=== PATIENT | male | born 1945 | race Caucasian/White ===

== ENCOUNTER 2019-02-07 09:13 | Emergency (ER) | payer OTHER, BC ==
[2019-02-07] MEDS ORDERED: DIPHTH,PERTUSS(ACELL),TET 0.5 ML DISP.SYRIN IM ONE (09:17)
[2019-02-07] MEDS ORDERED: LIDOCAINE HCL 1%, 10 MG/ML (20ML VIAL) ONE (09:28)
[2019-02-07] MEDS ORDERED: LIDOCAINE HCL 1%, 10 MG/ML (50 mL VIAL) SQ ONE (09:28)
[2019-02-07 09:38] VITALS: BP 147/63; PULSE 58; TEMP 97.6; BMI 23.0
--- NOTE | 2019-02-07 09:47 | PDOC ---
History of Present Illness - General Chief Complaint: Laceration Stated Complaint: RIGHT HAND LACERATION Time Seen by Provider: 02/07/19 09:17 - History of Present Illness Initial Comments: 02/07/19 09:48 73 years old with past medical history significant for hypertension presents to the emergency department status post laceration to his right hand in between the webbing of his fourth and fifth digit. Injury occurred while rolling up a hose. Last tetanus within 5 years Complaining of mild pain persistent concent no exacerbating or relieving factors. Past History - Past Medical History Allergies/Adverse Reactions: Allergies Allergy/AdvReac Type Severity Reaction Status Date / Time No Known Allergies Allergy Verified 02/07/19 09:24 Home Medications: Ambulatory Orders Allopurinol [Zyloprim -] 100 mg PO BID 02/07/19 Aspirin Coated [Ecotrin -] 81 mg PO DAILY 02/07/19 Losartan/Hydrochlorothiazide [Hyzaar 50-12.5 Tablet] 1 each PO DAILY 02/07/19 Nebivolol [Bystolic -] 5 mg PO HS 02/07/19 COPD: No HTN: Yes Other medical history: ELEVATED URIC ACID - Immunization History Td Vaccination: Yes TDAP Vaccination: Yes (05/16/2011) Immunization Up to Date: Yes - Suicide/Smoking/Psychosocial Hx Smoking Status: No Smoking History: Former smoker Have you smoked in the past 12 months: No Number of Cigarettes Smoked Daily: 15 If you are a former smoker, when did you quit?: 2014 Information on smoking cessation initiated: No Hx Alcohol Use: Yes Drug/Substance Use Hx: No Review of Systems - Review of Systems Comments:: 02/07/19 09:48 ROS: A complete review of 10 out of 10 review of systems is taken and is negative apart from what is previously mentioned below and in the HPI. *Physical Exam - Vital Signs Last Vital Signs Temp Pulse Resp BP Pulse Ox 97.6 F 58 L 15 147/63 99 02/07/19 09:14 02/07/19 09:14 02/07/19 09:14 02/07/19 09:14 02/07/19 09:14 - Physical Exam Comments: 02/07/19 09:48 Vitals: Triage Vital signs reviewed General Appearance: no acute distress, well nourished well developed, Head: Atraumatic, Extremities: Full range of motion to all extremities, no cyanosis, clubbing, or edema 2.5; laceration between the webbing of the fourth and fifth digit to the right hand. Neurovascularly intact distally, FDS FDP intact to pinky and ring finger. Good strength good sensation full range of motion normal extension Skin: Warm and dry, no rashes or lesions, no rash, no petechiae Neuro: , Strength intact to all extremities, Sensation intact to all extremities ,gait normal Psych: normal mood, normal affect Procedures - Laceration/Wound Repair Right Hand Wound Length: to 2.5 cm Wound Explored: clean Wound's Depth, Shape: superficial Irrigated w/ Saline: Yes Betadine Prep: Yes Anesthesia: 1% Lidocaine Suture Size/Type: 5:0 Number of Sutures: 4 Sterile Dressing Applied: Yes Medical Decision Making - Medical Decision Making 02/07/19 09:49 Laceration to the webbing. 4 5.0 sutures applied after thorough irrigation. Good approximation. Bacitracin applied sterile dressing applied. Findings, the need for follow-up and strict return instructions discussed with patient. *DC/Admit/Observation/Transfer Diagnosis at time of Disposition: Laceration - Discharge Dispostion Disposition: HOME Condition at time of disposition: Good Decision to Admit order: No - Referrals Referrals: Ronnie Ang MD [Primary Care Provider] - - Patient Instructions Printed Discharge Instructions: DI for Laceration Repair Additional Instructions: Apply bacitracin twice a day. Keep covered and dry for the next 36 hours. Okay to gently wash but do not disrupt the stitches after that. Return to the emergency department 7 days for suture removal or immediately for any redness signs of infection swelling bleeding pus or for any concerns. - Post Discharge Activity
== END 2019-02-07 09:55 | disposition home or self-care (01) ==
LOC: FER 09:13
PROC: 0HQFXZZ Repair Right Hand Skin, External Approach (ICD-10-PCS; principal; 2019-02-07)
DX: S61.411A Laceration without foreign body of right hand, initial encounter (principal); W22.8XXA Striking against or struck by other objects, initial encounter; Y93.89 Activity, other specified; Y92.89 Other specified places as the place of occurrence of the external cause; I10 Essential (primary) hypertension; Z87.891 Personal history of nicotine dependence
CPT/HCPCS: 12011-25; 99282-25

== ENCOUNTER 2019-02-17 09:56 | Emergency (ER) | payer OTHER, BC | END 2019-02-17 10:26 | disposition home or self-care (01) | LOC: FER 09:56 ==

== ENCOUNTER 2019-02-22 11:03 | Emergency (ER) | payer OTHER, BC ==
[2019-02-22 11:06] VITALS: BP 138/79; PULSE 74; TEMP 98.3; BMI 23.0
--- NOTE | 2019-02-22 11:38 | PDOC ---
Suture Removal/Wound Check HPI - History of Present Illness Chief Complaint: Suture/Staple Removal(Here) Stated Complaint: suture removal Time Seen by Provider: 02/22/19 11:31 History Source: Yes: Patient Treated at: [facility] ED Date of Last ED visit: 02/18/19 - Previous ED Treatment Type of procedure performed on last visit: Yes: Laceration Repair Tetanus Immunization: Yes: Up to Date, Last Tetanus <5 years ago Antibiotics Prescribed: No Past History - Travel Traveled outside of the country in the last 30 days: No Close contact w/someone who was outside of country & ill: No - Past Medical History Allergies/Adverse Reactions: Allergies Allergy/AdvReac Type Severity Reaction Status Date / Time No Known Allergies Allergy Verified 02/22/19 11:04 Home Medications: Ambulatory Orders Allopurinol [Zyloprim -] 100 mg PO BID 02/07/19 Aspirin Coated [Ecotrin -] 81 mg PO DAILY 02/07/19 Losartan/Hydrochlorothiazide [Hyzaar 50-12.5 Tablet] 1 each PO DAILY 02/07/19 Nebivolol [Bystolic -] 5 mg PO HS 02/07/19 COPD: No HTN: Yes - Immunization History Td Vaccination: Yes TDAP Vaccination: Yes (05/16/2011) Immunization Up to Date: Yes - Suicide/Smoking/Psychosocial Hx Smoking Status: No Smoking History: Never smoked Have you smoked in the past 12 months: No Number of Cigarettes Smoked Daily: 15 If you are a former smoker, when did you quit?: 2014 Information on smoking cessation initiated: No Hx Alcohol Use: Yes (3 X PER WEEK) Drug/Substance Use Hx: No Suture Removal/Wound Check PE - Physical Exam Laceration/Wound Check Symptoms: reports: None Current Severity Level: None Maximum Severity Level: None *Review of Systems - Review of Systems Able to Perform ROS?: Yes Constitutional: No: Symptoms Reported, See HPI, Chills, Diaphoresis, Fever, Loss of Appetite, Malaise, Night Sweats, Weakness, Weight Stable, Unintentional Wgt. Loss, Unexplained wgt Loss, Other Integumentary: Yes: Symptoms Reported, See HPI All Other Systems: Reviewed and Negative *Physical Exam - Vital Signs Last Vital Signs Temp Pulse Resp BP Pulse Ox 98.3 F 74 20 138/79 99 02/22/19 11:03 02/22/19 11:03 02/22/19 11:03 02/22/19 11:03 02/22/19 11:03 - Physical Exam General Appearance: Yes: Nourished, Appropriately Dressed, Thin HEENT: positive: DEMETRICE Neck: positive: Supple Musculoskeletal: positive: Normal Inspection Extremity: positive: Normal Capillary Refill, Normal Inspection, Other (well healing laceraton hand with [address], the rest previously removed and glue covering the healng wound) Integumentary: positive: Normal Color Neurologic: positive: Fully Oriented, Alert, Normal Mood/Affect Medical Decision Making - Medical Decision Making After neuro-vascular check up, wnl sutures removed without difficulty dressiing placed *DC/Admit/Observation/Transfer Diagnosis at time of Disposition: Visit for suture removal - Discharge Dispostion Disposition: HOME Condition at time of disposition: Improved Decision to Admit order: No - Referrals - Patient Instructions Printed Discharge Instructions: DI for Suture Removal - Post Discharge Activity
== END 2019-02-22 11:39 | disposition home or self-care (01) ==
LOC: FER 11:03
DX: Z48.02 Encounter for removal of sutures (principal)
CPT/HCPCS: 99281-25